=== PATIENT | male | born 1985 | race Asian ===

== ENCOUNTER 2018-12-26 20:07 | Emergency (ER) | payer OTHER ==
[~2018-12-26] VITALS: Ht 157.5 cm; Wt 68.0 kg
[2018-12-26] MEDS ORDERED: diphenhydrAMINE 25mg capsule PO ONE (20:25)
--- NOTE | 2018-12-26 21:25 | NUR ---
relieving RN for break, pt is resting quietly on gurney, resp even and unlabored, talking full sentences, waiting to be evaluated by provider
[2018-12-26] MEDS ORDERED: DOXYCYCLINE 100MG CAPSULE PO STA (21:44)
[2018-12-26] MEDS ORDERED: dexamethasone sod phosphate 10mg/ml inj PO STA (21:44)
[2018-12-26] MEDS ORDERED: PRED20TA PO (21:46)
[2018-12-26] MEDS ORDERED: DOXY100C43 PO (21:46)
[2018-12-26 22:08] VITALS: BP 123/84
== END 2018-12-26 22:09 | disposition home or self-care (01) ==
LOC: ER 20:09
DX: L23.7 Allergic contact dermatitis due to plants, except food (principal); Z79.899 Other long term (current) drug therapy
CPT/HCPCS: 99284; J1100; Q0163